=== PATIENT | male | born 1965 | race Caucasian/White ===

== ENCOUNTER 2019-06-07 22:40 | Inpatient (IN) | payer MEDICARE ==
[~2019-06-07] VITALS: Ht 182.9 cm; Wt 84.8 kg
[~2019-06-07 22:40] MED LIST: CLEOCIN HCL150 MG PO; DOXYCYCLINE 10100 MG PO; IBUPROFEN 600600 M1 PO; LISINOPRIL10 MG PO; MAGIC MOUTHWASH SW&SWALLOW; NORCO 5-325 TA1 EACH PO; PANTOPRAZOLE SO40 M1 PO; PROBIOTIC1 EAC2 PO; ZANTAC 150MG T150 MG PO
[2019-06-07 22:52] VITALS: BP 159/87
[2019-06-08 02:39] VITALS: BP 155/82
[2019-06-08 02:50] VITALS: BP 139/80
--- NOTE | 2019-06-08 04:28 | NUR ---
RECIEVED PT FROM ED WITH SCROTUM ABCESS, PT ALERT ORIENTED X4 DATE BASE AND ASSESSMENT COMPLETED, PICTURES TAKEN OF SCROTUM AND RIGHT HEEL WOUND AND PLACED IN CHART, CALLED MD FOR PAIN MEDICATION AND MEDICATED. BOX LUNCH GIVEN REQUESTED BY PT. DISCUSSED PLAN OF CARE AND PT VERBALIZED UNERSTANDING AND AGREEABLE.
--- NOTE | 2019-06-08 06:11 | NUR ---
CONSULT CALLED TO SURGERY SPOKE WITH DR LUGO, WILL BE IN TO SEE PT THIS AM.
[2019-06-08 07:30] VITALS: BP 136/76
[2019-06-08 09:23] LABS: ABSOLUTE BASOPHILS 0.1 thou/uL (0.0-0.2); ABSOLUTE EOSINOPHILS 0.4 thou/uL (0.0-0.7); ABSOLUTE LYMPHOCYTES 2.1 thou/uL (0.8-5.3); ABSOLUTE MONOCYTES 0.7 thou/uL (0.0-1.2); ABSOLUTE NEUTROPHILS 6.4 thou/uL (1.6-8.1); BASOPHILS 0.9 %; EOSINOPHILS 3.9 %; HEMATOCRIT 40.2 % (42.0-52.0); HEMOGLOBIN 13.9 gm/dL (14.0-18.0); LYMPHOCYTES 21.5 %; MCH 31.6 pg (26.0-34.0); MCHC 34.7 g/dL (28.0-37.0); MCV 91.2 fL (80.0-100.0); MONOCYTES 7.2 %; MPV 6.7 fl. (7.2-11.1); NUCLEATED RBCS 0 /100WBC; PLATELET COUNT* 239 thou/uL (150-400); POLYS 66.5 %; RBC 4.41 mil/uL (4.50-6.00); RDW-CV 14.3 % (10.5-14.5); WBC 9.5 thou/uL (4.0-11.0)
[2019-06-08 09:35] LABS: CALCIUM 8.2 mg/dL (8.5-10.1); CREATININE 1.1 mg/dL (0.6-1.3); POTASSIUM 4.2 mmol/L (3.5-5.1)
[2019-06-08 12:00] VITALS: BP 116/67
--- NOTE | 2019-06-08 16:38 | NUR ---
PATIENT OUT OF BED WITH ASSISTANCE. IVF AND SCHED ABX INFUSING ORDERED. NO INTERVENTION FROM SURGERY TO SCROTAL ABCESS. US OF SCROTAL RESULTS CALLED TO DR. ROSADO. INSULIN GIVEN WITH MEALS WHEN REQUIRED. PATIENT C/O HOSPITAL FOOD THIS NURSE OFFERED TO HELP PATIENT WITH OPTIONS BUT PATIENT STATED HE WAS USED TO EATING HIS "RAMEN NOODLES AND WHITE CASTLE BURGERS AND SMOKING HIS WEED 3 TIMES A DAY." PRN HYDROCODONE GIVEN FOR PAIN WITH GOOD RELIEF NOTED. RIGHT HEEL ELEVATED DUE TO WOUND.
[2019-06-08 19:45] VITALS: BP 131/74
--- NOTE | 2019-06-08 22:58 | NUR ---
1929 CALLED PLACED TO SURGERY , RESULTS OF ULTRA SOUNDS READ BACK TO DR LUGO. ORDERS RECIEVED AT THAT KWAME
--- NOTE | 2019-06-09 04:13 | NUR ---
ASSUMED CARE FROM DAY SHIFT PT REQUESTING PAIN MEDICATION FOR C/O ARM PAIN AND NUMBNESS. PT UP TO BATHROOM WITH ASSISTANCE . IV ACCIDENTLY PULLED OUT, NEW IV PLACED IN RIGHT FOREARM TOLERATED WELL. HOURLY ROUNDING FOR SAFETY . WILL CONITNUE WITH CURRENT PLAN OF CARE, WILL REPORT CHANGES OR ABNORMAL FINDINGS.
[2019-06-09 04:45] LABS: HEMATOCRIT 42.4 % (42.0-52.0); HEMOGLOBIN 14.3 gm/dL (14.0-18.0); MCH 31.4 pg (26.0-34.0); MCHC 33.8 g/dL (28.0-37.0); MPV 7.3 fl. (7.2-11.1); RBC 4.57 mil/uL (4.50-6.00); RDW-CV 14.9 % (10.5-14.5); WBC 8.7 thou/uL (4.0-11.0)
[2019-06-09 05:13] LABS: CALCIUM 8.6 mg/dL (8.5-10.1); CREATININE 0.9 mg/dL (0.6-1.3); POTASSIUM 4.6 mmol/L (3.5-5.1)
[2019-06-09 07:25] VITALS: BP 143/86
--- NOTE | 2019-06-09 16:28 | NUR ---
PATIENT GIVEN PRN HYDROCODONE, GOOD RELIEF NOTED. IV SL, SCHED ABX INFUSED ORDERED. BEDSIDE I&D BY DR. LUGO THIS AFTERNOON, GAUZE PLACED FOR PACKING WITH ABX ABD MESH UNDERWEAR. PATIENT REFUSING LUNCH TODAY. MRSA NARES SWAB NEGATIVE.
[2019-06-09 23:03] VITALS: BP 133/77
[2019-06-10 04:41] LABS: HEMATOCRIT 40.8 % (42.0-52.0); HEMOGLOBIN 13.9 gm/dL (14.0-18.0); MCH 31.2 pg (26.0-34.0); MCV 91.8 fL (80.0-100.0); MPV 6.7 fl. (7.2-11.1); RBC 4.44 mil/uL (4.50-6.00); RDW-CV 14.1 % (10.5-14.5); WBC 7.4 thou/uL (4.0-11.0)
[2019-06-10 04:47] LABS: CALCIUM 8.6 mg/dL (8.5-10.1); CREATININE 0.9 mg/dL (0.6-1.3)
[2019-06-10 08:05] VITALS: BP 131/86
--- NOTE | 2019-06-10 12:53 | NUR ---
Nutrition: Consult for uncontrolled DM. Admitted with wound on scrotum. Pt refused all education and DM info today. He stated, "I'v had DM for 30 yrs, already cut off both feet. You can tell me what's best for me, but I'm just going to go home eat what I want, and not take RX. I don't keep to any diet." He has lost 100# this year and he stated he feels like "it's just his time" to be "withering away." He said he usually runs 200s and 300s for BG and he doesn't like getting to 100s b/c he feels weak. Wt: 186#. Complete refusal of nutrition educ. He did state he doesn't like menon peppers and allowed me to call kitchen to order NO PEPPERS on his trays. Pt not ready to learn R/T DM lifestyle AEB pt self report. Moderate nutrition risk, but no other nutrition interventions today. F/u 06/14/19.
--- NOTE | 2019-06-10 14:51 | NUR ---
WOUND NURSE: PATIENT SEEN TO ADDRESS SCROTAL WOUND S/P I&D BY SURGERY DEPT, BUT IS DISINTERESTED REGARDING ASSESSMENT BY THIS NURSE. IN SPITE OF THIS, SUGGESTED THAT PATIENT USE DRY GAUZE OR ABD IN HIS BRIEFS TO CONTROL DRAINAGE. HOWEVER, PATIENT DENIES DRAINAGE FROM THE WOUND. HE ALSO REPORTS PACKING WON'T STAY IN D/T CAVITY TOO SMALL. ALSO REPORTS STABLE ESCHAR ON RIGHT HEEL AND RICKS'S NOT WANT THIS ADDRESSED EITHER. PATIENT INFORMED OF POTENTIAL COMPLICATIONS AND HE STATES HE UNDERSTANDS.
--- NOTE | 2019-06-10 15:17 | NUR ---
SW met with pt to complete initial assessment, introduce self, and SW role. Pt alert, oriented, visiting with a friend. Pt lives at home alone, independent. Pt does not anticipate any dc needs but expressed that he is hopeful for pain management; that is pt main focus. SW to remain available to assist with safe dc planning if needs arise.
[2019-06-10 15:49] VITALS: BP 147/83
[2019-06-10 20:00] VITALS: BP 127/60
--- NOTE | 2019-06-10 20:07 | NUR ---
PATIENT AMBULATING IN ROOM THROUGHOUT SHIFT. ALL SAFETY MEASURES MAINTAINED. PATIENT DECLINED ASSISTED WITH WOUND CARE. WOUND CARE NURSE REQUESTED CLARIFICATION OF WOUND CARE ORDERS WITH SURGERY. DR. AVNI PIMENTEL INSTRUCTED TO CONTINUE WIHT DAILY AND PRN WOUND CARE OF STERILE GAUZE AND ABD FOR SCROTAL WOUND. PATIENT DENIES WOUND DRAINAGE. PATIENT REPORTS HE WILL LET NURSING STAFF KNOW IF HE NEEDS HELP WITH WOUND CARE. PATIENT USING WARM COMPRESS THROUGHOUT SHIFT.
[2019-06-10 20:30] VITALS: BP 141/83
[2019-06-11 04:36] LABS: ABSOLUTE BASOPHILS 0.1 thou/uL (0.0-0.2); ABSOLUTE EOSINOPHILS 0.4 thou/uL (0.0-0.7); ABSOLUTE LYMPHOCYTES 2.1 thou/uL (0.8-5.3); ABSOLUTE MONOCYTES 0.6 thou/uL (0.0-1.2); ABSOLUTE NEUTROPHILS 3.9 thou/uL (1.6-8.1); BASOPHILS 0.8 %; EOSINOPHILS 5.2 %; HEMATOCRIT 41.2 % (42.0-52.0); HEMOGLOBIN 14.3 gm/dL (14.0-18.0); LYMPHOCYTES 29.9 %; MCH 31.8 pg (26.0-34.0); MCHC 34.7 g/dL (28.0-37.0); MCV 91.7 fL (80.0-100.0); MONOCYTES 8.5 %; MPV 6.6 fl. (7.2-11.1); NUCLEATED RBCS 0 /100WBC; PLATELET COUNT* 248 thou/uL (150-400); POLYS 55.6 %; RDW-CV 14.1 % (10.5-14.5); WBC 7.1 thou/uL (4.0-11.0)
--- NOTE | 2019-06-11 06:44 | NUR ---
PT SLEPT AFTER 0200. IV INFILTRATED TO RIGHT ARM, ABX STOPPED AND WARM PACK APPLIED TO ARM. PT REFUSING IV RESTART AT THIS TIME, WOULD LIKE TO WAIT TO SEE IF DR IS GOING TO START ORAL ABX TODAY. ACCUCHECK 198 OVERNIGHT, REFUSING INSULIN. HYDROCODONE 2 TABS GIVEN PO FOR COMPLAINT OF SCROTAL ABSCESS SITE PAIN WITH GOOD RESULT. UP AD PHYLICIA IN ROOM. PT DOES SELF CARE TO SCROTAL DRSG, DRS IN THIS MORNING TO ROUND ON PT AND ASSESSED ABSCESS PER PT-STATES IT IS GETTING BETTER, NOT DRAINING. 4X4S AND MESH PANTS WORN BY PT FOR COMFORT. AM LAB. SCABBED AREA TO BACK OF RIGHT HEEL. ABLE TO USE CALL LITE AND MAKE NEEDS KNOWN.CALL LITE IN EASY REACH. NO IV ACCESS AT THIS TIME, WILL TRY TO START IV BEFORE END OF SHIFT.
[2019-06-11 08:00] VITALS: BP 156/79
[2019-06-11 16:00] VITALS: BP 155/87
--- NOTE | 2019-06-11 18:48 | NUR ---
PT A&OX4 VSS. PT CONTINUES TO MONITOR AND CARE FOR DRESSING. NO C/O PAIN AT THIS TIME. NEW IV PLACED TO LFA BY [facility]ENT[facility] BREWSTER THIS AM. IV ANTIBIOTICS ADMINISTERED THIS SHIFT. NO REDNESS/SWELLIG AT IV SITE, DRESSING C/D/I. PT UP AD PHYLICIA. PT INTERMITTENTLY REFUSES INSULIN. STATES HE WON'T BE TAKING IT AT HOME ANYWAY. PT CONTINUES TO REST IN ROOM WITH CALL LIGHT IN REACH. WILL CONTINUE TO MONITOR.
[2019-06-11 21:41] VITALS: BP 153/75
[2019-06-12 02:06] LABS: GLYCOHEMOGLOBIN (HGB A1C) 10.1 % (4.8-5.6)
--- NOTE | 2019-06-12 06:38 | NUR ---
PT AWAKE MOST OF THE NIGHT, UP AD PHYLICIA AND IN HALLWAY. SNACKS AND DRINKS OVERNIGHT. TAKING PO PAIN MEDS FOR CO SCROTAL PAIN WITH GOOD RESULT. LARGE LOOSE BM OVERNIGHT. LFA SL, IV ABX GIVEN ORDERED. HS ACCUCHECK 202, INSULIN GIVEN WITH SNACK. NO LABS THIS MORNING. AOX4, ABLE TO USE CALL LITE AND MAKE NEEDS KNOWN.
[2019-06-12 08:00] VITALS: BP 114/89
[2019-06-12 15:55] VITALS: BP 131/78
--- NOTE | 2019-06-12 18:41 | NUR ---
PT REMAINS A&OX4 VSS. PT TO DC HOME TOMORROW. PT UP AD PHYLICIA, GAIT STEADY. ORDWRS CHANGED TO PO ANTIBIOTICS THIS SHIFT. PO PAIN MEDICATION TO ADDRESS C/O DISCOMFORT. INSULIN ADMINISTERED THIS SHIFT, PT DECLINES INTERMITTENTLY HE SAYS HE "WON'T BE USING IT AT HOME ANYWAY". PT CARES FOR WOUND INDEPENDENTLY PER HIS CHOICE. DRESSING C/D/I. PT RESTING IN ROOM WITH CALL IGHT IN REACH. WILL CONTINUE TO MONITOR.
[2019-06-12 20:00] VITALS: BP 136/73
--- NOTE | 2019-06-13 05:37 | NUR ---
VSS RA. MEDS GIVEN ORDERED EXCEPT PT REFUSED INSULIN. PT REPORTED WAKING UP WITH SEVERE PAIN ON HIS LT ARM. NORCO GIVEN, HEAT APPLIED. PAIN PARTIALLY RESOLVED. WILL CONTINUE TO MONITOR.
[2019-06-13 07:50] VITALS: BP 115/73
[2019-06-13] MEDS ORDERED: PROBIOTIC1 EAC1 PO (10:49)
[2019-06-13] MEDS ORDERED: CIPRO250 M2 PO (10:49)
[2019-06-13] MEDS ORDERED: HYDROCODON-ACE1 EAC7 PO (10:49)
[2019-06-13 11:11] VITALS: BP 115/73
--- NOTE | 2019-06-13 14:16 | NUR ---
WOUND PHOTOS TAKEN OF RIGHT HEEL AND SCROTUM PER PROTOCOL. IV DC'D. PATIENT GIVEN PRN HYDROCODONE THIS AM FOR LEFT ARM PAIN. DR. CORTEZ AWARE OF LEFT ARM PAIN, PATIENT DOES HAVE HISTORY OF NEUROPATHY. UP AD PHYLICIA. INSULIN GIVEN WITH BREAKFAST, PATIENT REFUSED LUNCH. PATIENT REFUSED TO HAVE A CAB CALLED FOR HIM AND STATED HE DID NOT HAVE ANY OTHER RIDE. DR. CORTEZ NOTIFIED. PATIENT TAKEN OUT VIA WHEELCHAIR WITH ALL BELONGINGS.
== END 2019-06-13 14:00 | disposition home or self-care (01) | DRG 580 ==
LOC: M.ERS 22:40 → M.3W 06-08 01:42 → M.TBA-ER 06-08 01:42 → M.3W 06-08 02:57
PROVIDERS: Internal Medicine; Surgery; ADMIT Family Medicine
PROC: 0J9B0ZZ Drainage of Perineum Subcutaneous Tissue and Fascia, Open Approach (ICD-10-PCS; principal; 2019-06-09)
DX: L03.315 Cellulitis of perineum (principal); E87.1 Hypo-osmolality and hyponatremia; L02.215 Cutaneous abscess of perineum; E11.65 Type 2 diabetes mellitus with hyperglycemia; I10 Essential (primary) hypertension; E78.00 Pure hypercholesterolemia, unspecified; E11.40 Type 2 diabetes mellitus with diabetic neuropathy, unspecified; Z79.4 Long term (current) use of insulin; Z88.0 Allergy status to penicillin; Z91.018 Allergy to other foods; Z86.14 Personal history of Methicillin resistant Staphylococcus aureus infection; Z89.422 Acquired absence of other left toe(s); Z89.421 Acquired absence of other right toe(s)